=== PATIENT | female | born 1990 | race Caucasian/White ===

== ENCOUNTER 2019-01-12 12:20 | Emergency (ER) | payer SELFPAY ==
[~2019-01-12] VITALS: Ht 170.2 cm; Wt 90.7 kg
[2019-01-12 12:48] LABS: BILIRUBIN,URINE NEGATIVE (NEGATIVE); CLARITY,URINE VERY CLOUDY; COLOR,URINE BROWN; GLUCOSE, URINE (UA) NEGATIVE (NEGATIVE); KETONES,URINE NEGATIVE (NEGATIVE); LEUKOCYTE ESTERASE ,URINE 3+ (NEGATIVE); NITRITE,URINE POSITIVE (NEGATIVE); PH,URINE 5 (5-9); PROTEIN,URINE 3+ (NEGATIVE); UROBILINOGEN,URINE 1 MG/DL (NORMAL)
--- NOTE | 2019-01-12 12:52 | ED GU-Female ---
General Chief Complaint: Abdominal/GI Problems Stated Complaint: LOWER BACK PAIN;LOWER ABD PAIN Nursing Triage Note: PT REPORTS ABDOMINAL AND L SIDED BACK PAIN. PT DENIES VOMITING BUT REPORTS NAUSEA. Nursing Sepsis Screen: No Definite Risk Source: patient Exam Limitations: no limitations History of Present Illness Date Seen by Provider: Jan 12, 2019 Time Seen by Provider: 12:50 Initial Comments to ER with suprapubic and left flank pain. Symptoms have been ongoing for about 4 days, during this time she[place] in [place] boyfriend. She denies fevers chills but she does report nausea that she associates due to the pain she is having.She states that she's had some urinary incontinence, "weird" sensation when she is urinating, and urinary frequency. Timing/Duration: getting worse Severity/Quality: moderate Location: suprapubic Radiation: none Activities at Onset: none Prior Genitourinary Problems: none Associated Symptoms: denies symptoms Allergies and Home Medications Allergies Coded Allergies: No Known Drug Allergies (Unverified , 01/12/19) Home Medications No Active Prescriptions or Reported Meds Patient Home Medication List Home Medication List Reviewed: Yes Review of Systems Review of Systems Constitutional: see HPI; No chills, No fever EENTM: see HPI Respiratory: no symptoms reported Cardiovascular: no symptoms reported Gastrointestinal: abdominal pain, nausea Genitourinary: dysuria, frequency, flank pain Musculoskeletal: no symptoms reported Skin: no symptoms reported Psychiatric/Neurological: No Symptoms Reported Endocrine: No Symptoms Reported Past Wizrien-Vcghrd-Wgtbig Hx Patient Social History Alcohol Use: Denies Use Recreational Drug Use: No Smoking Status: Current Everyday Smoker Type Used: Cigarettes Recent Foreign Travel: No Contact w/Someone Who Travel: No Recent Infectious Disease Expo: No Recent Hopitalizations: No Physical Abuse: No Sexual Abuse: No Mistreated: No Fear: No Seasonal Allergies Seasonal Allergies: No Past Medical History Surgeries: No Respiratory: No Cardiac: No Neurological: No Genitourinary: No Gastrointestinal: No Musculoskeletal: No Endocrine: No HEENT: No Cancer: No Psychosocial: No Integumentary: No Blood Disorders: No Physical Exam Vital Signs Vital Signs - First Documented 01/12/19 12:39 Temp 98.2 Pulse 100 Resp 16 B/P (MAP) 129/100 (110) Pulse Ox 97 Capillary Refill : Less Than 3 Seconds Height, Weight, BMI Height: 5'7.00" Weight: 200lbs. oz. [id number]; BMI Method:Stated General Appearance: WD/WN, no apparent distress HEENT: PERRL/EOMI, normal ENT inspection Neck: non-tender, full range of motion Respiratory: no respiratory distress, no accessory muscle use Gastrointestinal: normal bowel sounds, soft, tenderness (suprapubic) Extremities: normal range of motion, non-tender Neurologic/Psychiatric: alert, normal mood/affect, oriented x 3 Skin: normal color, warm/dry Progress/Results/Core Measures Suspected Sepsis Recent Fever Within 48 Hours: No Infection Criteria Present: None New/Unexplained Altered Menta: No Sepsis Screen: No Definite Risk SIRS Temperature:98.2 Pulse: 100 Respiratory Rate: 16 Laboratory Tests 01/12/19 12:49: White Blood Count 11.8H Blood Pressure 129 /100 Mean: 110 Laboratory Tests 01/12/19 12:49: Creatinine 0.83, Platelet Count 338 Results/Orders Lab Results Laboratory Tests Test 01/12/19 12:27 01/12/19 12:40 01/12/19 12:49 Range/Units Urine Test NEGATIVE NEGATIVE Urine Opiates Screen POSITIVE H NEGATIVE Urine Oxycodone Screen NEGATIVE NEGATIVE Urine Methadone Screen NEGATIVE NEGATIVE Urine Propoxyphene Screen NEGATIVE NEGATIVE Urine Barbiturates Screen NEGATIVE NEGATIVE Ur Tricyclic Antidepressants Screen NEGATIVE NEGATIVE Urine Phencyclidine Screen NEGATIVE NEGATIVE Urine Amphetamines Screen POSITIVE H NEGATIVE Urine Methamphetamines Screen POSITIVE H NEGATIVE Urine Benzodiazepines Screen NEGATIVE NEGATIVE Urine Cocaine Screen NEGATIVE NEGATIVE Urine Cannabinoids Screen NEGATIVE NEGATIVE Urine Color BROWN H Urine Clarity VERY CLOUDY H Urine pH 5 5-9 Urine Specific [place] 1.025 H 1.016-1.022 Urine Protein 3+ H NEGATIVE Urine Glucose (UA) NEGATIVE NEGATIVE Urine Ketones NEGATIVE NEGATIVE Urine Nitrite POSITIVE H NEGATIVE Urine Bilirubin NEGATIVE NEGATIVE Urine Urobilinogen 1 NORMAL MG/DL Urine Leukocyte Esterase 3+ H NEGATIVE Urine RBC (Auto) 5+ H NEGATIVE Urine RBC >100 H /HPF Urine WBC >100 H /HPF Urine Squamous Epithelial Cells 5-10 /HPF Urine Crystals NONE /LPF Urine Bacteria MODERATE H /HPF Urine Casts NONE /LPF Urine Mucus NEGATIVE /LPF Urine Culture Indicated NO White Blood Count 11.8 H 4.3-11.0 10^3/uL Red Blood Count 4.81 4.35-5.85 10^6/uL Hemoglobin 14.2 11.5-16.0 G/DL Hematocrit 42 35-52 % Mean Corpuscular Volume 88 80-99 FL Mean Corpuscular Hemoglobin 30 25-34 PG Mean Corpuscular Hemoglobin Concent 34 32-36 G/DL Red Cell Distribution Width 13.5 10.0-14.5 % Platelet Count 338 130-400 10^3/uL Mean Platelet Volume 10.6 H 7.4-10.4 FL Neutrophils (%) (Auto) 74 42-75 % Lymphocytes (%) (Auto) 18 12-44 % Monocytes (%) (Auto) 8 0-12 % Eosinophils (%) (Auto) 1 0-10 % Basophils (%) (Auto) 0 0-10 % Neutrophils # (Auto) 8.7 H 1.8-7.8 X 10^3 Lymphocytes # (Auto) 2.1 1.0-4.0 X 10^3 Monocytes # (Auto) 0.9 0.0-1.0 X 10^3 Eosinophils # (Auto) 0.1 0.0-0.3 10^3/uL Basophils # (Auto) 0.0 0.0-0.1 10^3/uL Sodium Level 138 135-145 MMOL/L Potassium Level 4.4 3.6-5.0 MMOL/L Chloride Level 107 98-107 MMOL/L Carbon Dioxide Level 23 21-32 MMOL/L Anion Gap 8 5-14 MMOL/L Blood Urea Nitrogen 10 7-18 MG/DL Creatinine 0.83 0.60-1.30 MG/DL Estimat Glomerular Filtration Rate > 60 BUN/Creatinine Ratio 12 Glucose Level 102 70-105 MG/DL Calcium Level 9.2 8.5-10.1 MG/DL My Orders Orders - MAHENDRA AMAYA APRN Ua Culture If Indicated (01/12/19 12:27) Urine Bedside (01/12/19 12:27) Hcg,Qualitative Urine (01/12/19 12:48) Iv Heplock-Insert (Order) (01/12/19 12:48) Cbc With Automated Diff (01/12/19 12:48) Basic Metabolic Panel (01/12/19 12:48) Ketorolac Injection (Toradol Injection) (01/12/19 13:00) Ns Iv 1000 Ml (Sodium Chloride 0.9%) (01/12/19 13:00) Phenazopyridine Tablet (Pyridium Tablet) (01/12/19 13:00) Drug Screen Stat (Urine) (01/12/19 12:52) Ceftriaxone For Iv Use (Rocephin For I (01/12/19 13:15) Medications Given in ED Current Medications Medications Dose Ordered Sig/Harleen Route Start Time Stop Time Status Last Admin Dose Admin Ketorolac Tromethamine 15 mg ONCE ONCE IVP 01/12/19 13:00 01/12/19 13:01 DC 01/12/19 13:01 15 MG Phenazopyridine HCl 100 mg ONCE ONCE PO 01/12/19 13:00 01/12/19 13:01 DC 01/12/19 13:01 100 MG Vital Signs/I&O 01/12/19 12:39 Temp 98.2 Pulse 100 Resp 16 B/P (MAP) 129/100 (110) Pulse Ox 97 Capillary Refill : Less Than 3 Seconds Blood Pressure Mean: 110 Departure Impression Primary Impression: Pyelonephritis Disposition: 01 HOME, SELF-CARE Condition: Stable Departure-Patient Inst. Decision time for Depature: 13:18 Patient Instructions: Kidney Infection Add. Discharge Instructions: 1. Antibiotics as directed 2. Return to ER for any concerns 3. Follow-up with your doctor next week.All discharge instructions reviewed with patient and/or family. Voiced understanding. Scripts Phenazopyridine HCl (Pyridium) 100 Mg Tablet 100 MG PO TID, #9 TAB Prov: MAHENDRA AMAYA P[employer] LINE GAUGER 01/12/19 Naproxen (Naprosyn) 500 Mg Tablet 500 MG PO BID PRN for PAIN-MILD TO MODERATE, #20 TAB Prov: MAHENDRA AMAYA P[employer]GER 01/12/19 Ciprofloxacin HCl (Cipro) 500 Mg Tablet 500 MG PO BID, #14 TAB Prov: MAHENDRA AMAYA P[employer] LINE [employer]GER 01/12/19 MAHENDRA AMAYA APRN Jan 12, 2019 12:52
[2019-01-12 12:57] LABS: BASOPHILS % (AUTO) 0 % (0-10); EOSINOPHILS # (AUTO) 0.1 10^3/uL (0.0-0.3); EOSINOPHILS % (AUTO) 1 % (0-10); HEMATOCRIT 42 % (35-52); HEMOGLOBIN 14.2 G/DL (11.5-16.0); LYMPHOCYTES # (AUTO) 2.1 X 10^3 (1.0-4.0); LYMPHOCYTES % (AUTO) 18 % (12-44); MEAN CORPUSCULAR HEMOGLOBIN 30 PG (25-34); MEAN CORPUSCULAR HGB CONC 34 G/DL (32-36); MEAN CORPUSCULAR VOLUME 88 FL (80-99); MEAN PLATELET VOLUME 10.6 FL (7.4-10.4); MONOCYTES # (AUTO) 0.9 X 10^3 (0.0-1.0); MONOCYTES % (AUTO) 8 % (0-12); NEUTROPHILS # (AUTO) 8.7 X 10^3 (1.8-7.8); NEUTROPHILS % (AUTO) 74 % (42-75); PLATELET COUNT 338 10^3/uL (130-400); RED CELL DISTRIBUTION WIDTH 13.5 % (10.0-14.5); WHITE BLOOD COUNT 11.8 10^3/uL (4.3-11.0)
[2019-01-12 12:59] LABS: BACTERIA,URINE MODERATE /HPF; RBC,URINE >100 /HPF; WBC,URINE >100 /HPF
[2019-01-12] MEDS ORDERED: PHENAZOPYRIDINE 100 MG (PYRIDIUM) TABLET PO ONE (13:00)
[2019-01-12] MEDS ORDERED: KETOROLAC 30 MG/ML VIAL IVP ONE (13:00)
[2019-01-12] MEDS ORDERED: NS IV 1000 ML 1,000 ML IV SCH (13:00)
[2019-01-12 13:12] LABS: AMPHETAMINE SCREEN, URINE POSITIVE (NEGATIVE); BARBITURATE SCREEN URINE NEGATIVE (NEGATIVE); BENZODIAZEPINES SCREEN URINE NEGATIVE (NEGATIVE); CANNABINOID SCREEN, URINE NEGATIVE (NEGATIVE); COCAINE SCREEN URINE NEGATIVE (NEGATIVE); METHADONE STAT NEGATIVE (NEGATIVE); METHAMPHETAMINE SCREEN URINE S POSITIVE (NEGATIVE); OPIATE SCREEN URINE POSITIVE (NEGATIVE); OXYCODONE STAT NEGATIVE (NEGATIVE); PROPOXYPHENE STAT NEGATIVE (NEGATIVE); TRICYCLIC ANTIDEPRESSANTS SCRE NEGATIVE (NEGATIVE)
[2019-01-12] MEDS ORDERED: cefTRIAXone FOR IV USE 1,000 MG in WATER (STERILE) FOR INJECTION 10 ML IV ONE (13:15)
[2019-01-12 13:17] LABS: BUN/CREATININE RATIO 12; CALCIUM 9.2 MG/DL (8.5-10.1); CARBON DIOXIDE 23 MMOL/L (21-32); CHLORIDE 107 MMOL/L (98-107); CREATININE SERUM 0.83 MG/DL (0.60-1.30); GFR ESTIMATED > 60; GLUCOSE 102 MG/DL (70-105); POTASSIUM 4.4 MMOL/L (3.6-5.0); SODIUM 138 MMOL/L (135-145)
[2019-01-12] MEDS ORDERED: NAPR-1071 PO (13:19)
[2019-01-12] MEDS ORDERED: CIPR-225 PO (13:19)
[2019-01-12] MEDS ORDERED: PHEN-639 PO (13:20)
[2019-01-12 13:35] VITALS: BP 130/87
== END 2019-01-12 13:35 | disposition home or self-care (01) ==
LOC: ER 12:22
DX: N12 Tubulo-interstitial nephritis, not specified as acute or chronic (principal); F17.210 Nicotine dependence, cigarettes, uncomplicated
CPT/HCPCS: 36415; 80048; 80306; 81000; 84703; 85025